=== PATIENT | male | born 1985 | race Caucasian/White ===

== ENCOUNTER 2016-09-22 15:26 | Emergency (ER) | payer OTHER ==
[~2016-09-22 15:26] MED LIST: BENTYL20 MG PO; CLEOCIN HCL300 MG PO; COLACE100 M1 PO; COMPAZINE10 M PO; CYCLOBENZAPRINE10 M1 PO; FLEXERIL10 MG; FLEXERIL10 MG PO; GUAIATUSSIN AC10 ML PO; H; HYDROCODON-ACE1 EA16 PO; HYDROCODON-ACE1 EAC7 PO; LEVAQUIN500 M1 PO; LOPERAMIDE2 M2 PO; MOTRIN600 MG PO; MOTRIN800 MG PO; NO HOME MEDICATION XX; NORCO 5-325 TA1 EACH PO; NORCO 5/325 TAB1 TAB PO; NORCO 7.5/325 T1 TAB PO; OXYCODONE/APAP PO; PEN-VEE K500 MG PO; PHENERGAN W/CO120 ML PO; PROMETHAZINE12.5 M2 PO; PROTONIX40 M2 PO; SKELAXIN800 MG PO; ULTRAM50 MG PO; ZANTAC150 M1 PO; ZITHROMAX250MG Z-PAK PO
[2016-09-22] MEDS ORDERED: CYCLOBENZAPRINE10 M1 PO (15:27)
== END 2016-09-22 15:57 ==
LOC: EDMED 15:26
DX: S16.1XXA Strain of muscle, fascia and tendon at neck level, initial encounter (principal); R51 Headache; V89.2XXA Person injured in unspecified motor-vehicle accident, traffic, initial encounter; Y92.410 Unspecified street and highway as the place of occurrence of the external cause
CPT/HCPCS: J1885; J2360

== ENCOUNTER 2016-10-07 08:04 | Emergency (ER) | payer SELFPAY ==
[2016-10-07] MEDS ORDERED: NORCO 5-325 TA1 EACH PO (08:29)
== END 2016-10-07 09:33 ==
LOC: EDMED 08:04
DX: G89.29 Other chronic pain (principal); M54.5 Low back pain; M54.6 Pain in thoracic spine

== ENCOUNTER 2016-12-24 11:38 | Emergency (ER) | payer SELFPAY ==
[2016-12-24] MEDS ORDERED: NORCO 5-325 TA1 EACH PO (14:57)
[2016-12-24] MEDS ORDERED: PREDNISONE10 M1 PO (14:57)
== END 2016-12-24 15:29 ==
LOC: EDMED 11:38
DX: M54.16 Radiculopathy, lumbar region (principal); M51.36 Other intervertebral disc degeneration, lumbar region; Z87.891 Personal history of nicotine dependence
CPT/HCPCS: J7512